=== PATIENT | female | born 1970 | race Caucasian/White ===

== ENCOUNTER 2016-08-18 14:38 | Emergency (ER) | payer OTHER ==
[~2016-08-18] VITALS: Ht 165.1 cm; Wt 99.0 kg
[~2016-08-18 14:38] MED LIST: FLEXERIL PO; ULTRAM50 M1 PO
[2016-08-18] MEDS ORDERED: LOSARTAN POT25 MG PO (14:54)
[2016-08-18] MEDS ORDERED: LANTUS100 MG/ML SC (14:54)
[2016-08-18] MEDS ORDERED: TRULICITY1.5 MG/0.5 SC (14:54)
[2016-08-18] MEDS ORDERED: FINASTERIDE5 MG PO (14:55)
[2016-08-18] MEDS ORDERED: TRAMADOL HYDROC50 MG PO (15:06)
[2016-08-18] MEDS ORDERED: NAPROSYN500 MG PO (15:06)
[2016-08-18 15:53] VITALS: BP 129/82
== END 2016-08-18 15:53 | disposition home or self-care (01) | DRG 563 ==
LOC: ED 14:38
PROC: 2W3QX1Z Immobilization of Right Lower Leg using Splint (ICD-10-PCS; principal; 2016-08-18)
DX: S82.831A Other fracture of upper and lower end of right fibula, initial encounter for closed fracture (principal); E11.9 Type 2 diabetes mellitus without complications; X50.1XXA Overexertion from prolonged static or awkward postures, initial encounter